=== PATIENT | female | born 1975 | race Caucasian/White ===

== ENCOUNTER → 2022-03-31 09:02 | Outpatient (CLI) | payer OTHER, SELFPAY ==
--- NOTE | ~2022-03-31 | CT_ITS ---
EXAMINATION: CT abdomen pelvis w con DATE: 03/31/2022 09:42 INDICATION: Abdominal wall mass. TECHNIQUE: Computed tomography (CT) of the abdomen and pelvis was performed with 100 mL Omnipaque 350 intravenous contrast. Automated exposure control and iterative reconstruction technique were employe d. The dose-length product was 850.91 mGy-cm. COMPARISON: None. FINDINGS: The visualized portions of the lung bases demonstrate minimal atelectasis. No pleural effus ion. The heart size is normal. No pericardial effusion. The liver, gallbladder, spleen, pancreas, adr enal glands, and left kidney are normal. There is a 5 mm mass in right kidney that is too small to ch aracterize, but likely a cyst. There are no dilated loops of bowel. The appendix is normal. There are no pathologically enlarged lymph nodes. There is no free intraperitoneal fluid. There is a 9.8 x 4.4 x 9.7 cm subcutaneous lipoma in right lateral abdomen. There is severe lower lumbar spondylosis. IMPRESSION: 1. 9.8 cm subcutaneous lipoma in right lateral abdomen. Reviewed, dictated and finalized at location A. UCTION ENGINE REPAIRER
== END ==
PROVIDERS: PCP Physician Assistant Medical; Visit Provider Physician Assistant Medical
DX: R22.2 Localized swelling, mass and lump, trunk (principal)
CPT/HCPCS: 74177; Q9967

== ENCOUNTER 2022-06-05 01:35 | Day surgery (SDC) | payer OTHER, SELFPAY ==
[2022-05-24 16:15] VITALS: BMI 34.2
--- NOTE | 2022-05-24 16:36 | PC.NURSE ---
Report to the Outpatient Waiting Room, entrance under the green pavilion located off [facility], at time 1000 on date _06/05/22. Planned Procedure Time: _1200. Time changes happen often and if your time is changed the preop area will call you the afternoon before. - You and your visitor will be asked to self-screen and do not enter if you have any COVID symptoms. - Only one visitor is requested with a max of two and NO children visitors are allowed at this time. - The patient visitor may be requested to leave or wait in car when not with patient due to distancing restrictions. - A mask is optional within the hospital at this time. Patients may have clear liquids (water, carbonated beverages, clear teas, apple juice) until 3 hours prior to surgery with a maximum of 20 ounces. - No food from midnight until time of surgery - Infants may have breast milk until 4 hours before surgery, infant formula 6 hours prior to surgery. - Children will be allowed to drink immediately following surgery. If applicable, please bring a bottle or sippy cup to assist with drinking. Juice, water, soda, and popsicles are readily available. For infants on formula, please bring formula the day of surgery. Pacifiers are allowed. Take the following medications with a SIP of water the morning of surgery: _n/a DO NOT STOP ANY OF YOUR OTHER PRESCRIPTION MEDICATIONS PRIOR TO SURGERY ?EXCEPT THE FOLLOWING Medications to discontinue per physician ___n/a Date to take last dose Please no make-up, nail vincentian, hairspray, perfume, deodorant, or body powder the day of surgery. No jewelry (including any body piercings) or valuables the day of surgery, leave them at home. Please take a shower or bath the night before, or the morning of, surgery with an antibacterial soap. Wear comfortable, loose fitting clothing. Children are encouraged to wear pajamas. - Jewelry must be removed prior to entering the operating room. Rings and piercings that are not removed may be cut off. - The hospital will not accept responsibility for valuables. - Please leave all valuables, including medications, at home the day of surgery. If you are going home after surgery, a licensed assembly line driver must drive you home. - NO public transportation without another adult if you receive anesthesia. - We recommend that an adult stay with you for 24 hours following discharge. - We also recommend that you do not drive, make important decision, drink alcoholic beverages, or take any drugs that were not prescribed by your health care provider for at least 24 hours after your discharge time. For Pediatric surgeries, we recommend two adults accompany the child home. Follow any additional instructions given to you from your surgeon. If you or anyone in your household have experienced Covid symptoms in the past week, please notify your surgeon or the nurse liaison at the phone number below for possible testing. Telephone instructions given to Shay Garibay and asked if any additional questions and then verbalized understanding. Patient advised to call surgeon office or pre surgery nurse liaison [phone] if any additional questions.
[2022-06-05] VITALS (7 sets, daily range): BP systolic 91–126; BP diastolic 49–82; PULSE 76–100; RESP 14–24; TEMP 37.1–37.4; O2SAT 98–100
[2022-06-05] MEDS: LACTATED RINGERS 1,000 ML 30 ML IV CONT ×2 (10:58→13:00)
--- NOTE | 2022-06-05 11:07 | P.PNAN_ITS ---
Anes - Initial Pre Proc Eval Procedure: Operation Date: 06/05/22 12:00 Proposed Procedures p Excision of Right Flank Subcutaneous Mass - Octavio Daley MD Date/Time: 06/05/22 11:07 Surgeon: Octavio Daley MD Pre Op Diagnosis: Rt Flank Subcutaneous Mass Patient Data Age: 46 Gender: F Height: 1.5 m Weight: 78 kg Last Vital Signs Temp 37.1 C 06/05/22 10:51 Pulse 95 06/05/22 10:51 Resp 14 06/05/22 10:51 BP 126/82 06/05/22 10:51 Pulse Ox 100 06/05/22 10:51 O2 Del Method Room Air 06/05/22 10:51 Allergies Allergy/AdvReac Type Severity Reaction Status Date / Time shellfish derived Allergy Severe Swelling Verified 06/05/22 10:59 of Lip/Tongue/Throat Home Medications Medication Instructions Recorded Confirmed Type clobetasol 0.05 % topical ointment 1 applic topical BID #60 grams 04/03/22 05/24/22 Rx medroxyprogesterone 150 mg/mL 150 mg IM [id number] #1 mL 04/03/22 05/24/22 Rx intramuscular suspension (Depo-Provera) acyclovir 800 mg tablet 800 mg PO TID PRN itching 05/24/22 05/24/22 History Patient hx anesthesia problems: none Family hx anesthesia problems: none Results Review: All pre-operative results and documents have been reviewed as part of the pre- operative evaluation. [facility] Past Medical History Medical History (Updated 06/05/22 @ 11:07 by Ricky Allison MD) Obesity Surgical History Surgical History S/P Family History Family History Grandparent Cancer Social History Social History Smoking status: Never smoker Alcohol intake: never Substance use: current Substance use type: marijuana Last use: 05/17/22 Lack of Transportation: No Lack of Food: Never True Current Housing: I Have Housing Concerned About Future Housing: No Difficulty Paying Gas/Electric Bills: No Difficulty Paying for Meds: No Currently Unemployed: No Education: Associate Degree Difficulty w/ Childcare or Family Care: No Living arrangements: with family Occupation/Education: occupation Gender identity (if verbalized by the patient): Female Sexual Orientation (if Verbalized by the Patient): Straight or Heterosexual Spiritual care concerns: No Anes - Eval Final PreProcedure Day of Procedure 06/05/22 11:07 Patient weight: obese Heart: regular rate and rhythm Lungs: clear to auscultation Airway: Mallampati scale class II Neurological: alert and oriented Last oral intake: >/= 8 hours ASA classification: II Emergent: no Anesthetic plan: proceed Anesthesia type and monitoring: general LMA and standard monitoring Results Review: All pre-operative results and documents have been reviewed as part of the pre- operative evaluation. Informed Consent: The patient's anesthetic plan and its attendant risks and benefits were discussed with the patient/family/POA. Questions were solicited and answers provided to the satisfaction of the patient/family/POA.
--- NOTE | 2022-06-05 11:14 | PM.IMHP ---
H&P: HPI History of Present Illness Date/Time: 06/05/22 11:14 Chief Complaint: Right lateral abdominal wall subcutaneous mass Narrative: Ms. Garibay presents to the office today for evaluation of a abdominal wall mass.? Patient reports first noticed a palpable right-sided abdominal mass over ten years ago. Since that time, admits it has doubled in size.? Was seen by her PCP for a wellness exam where a 19cm right lateral abdominal mass.? She was sent for a CT scan which showed a 9.8 cm subcutaneous lipoma in right lateral abdomen. Admits there's tenderness with pressure.? No overlying skin changes.? Review of Systems Review of Systems: The remainder of the review of systems to include constitutional, HEENT, cardiovascular, respiratory, GI, , integumentary, musculoskeletal, endocrine, immunologic, hematologic, psychiatric, and neurologic are all negative except for which is mentioned above in the HPI. [facility] Past Medical History Medical History (Updated 06/05/22 @ 11:07 by Ricky Allison MD) Obesity Surgical History Surgical History S/P Family History Family History Grandparent Cancer Social History Social History Smoking status: Never smoker Alcohol intake: never Substance use: current Substance use type: marijuana Last use: 05/17/22 Lack of Transportation: No Lack of Food: Never True Current Housing: I Have Housing Concerned About Future Housing: No Difficulty Paying Gas/Electric Bills: No Difficulty Paying for Meds: No Currently Unemployed: No Education: Associate Degree Difficulty w/ Childcare or Family Care: No Living arrangements: with family Occupation/Education: occupation Gender identity (if verbalized by the patient): Female Sexual Orientation (if Verbalized by the Patient): Straight or Heterosexual Spiritual care concerns: No Meds Home Medications and Allergies Home Medications Medication Instructions Recorded Confirmed Type clobetasol 0.05 % topical ointment 1 applic topical BID #60 grams 04/03/22 05/24/22 Rx medroxyprogesterone 150 mg/mL 150 mg IM [id number] #1 mL 04/03/22 05/24/22 Rx intramuscular suspension (Depo-Provera) acyclovir 800 mg tablet 800 mg PO TID PRN itching 05/24/22 05/24/22 History Allergies Allergy/AdvReac Type Severity Reaction Status Date / Time shellfish derived Allergy Severe Swelling Verified 06/05/22 10:59 of Lip/Tongue/Throat Vital Signs Vital Signs - 24 hr 06/05/22 10:51 Temperature 37.1 C Pulse Rate 95 Respiratory Rate 14 Blood Pressure 126/82 Pulse Oximetry 100 Oxygen Delivery Room Air Exam Const: General: comfortable and no acute distress Eyes: Sclera: sclerae normal Pupils: Equal, round and reactive pupils present Neck: Neck: supple and no JVD Resp: Effort & Inspection: normal respiratory effort Auscultation: clear to auscultation bilaterally Cardio: Rate: regular rate Rhythm: regular rhythm GI: GI Palp: Yes Soft to palpation, No Firmness to palpation present (GI), No Tenderness to palpation present (GI), No Guarding due to palpation present (GI) and No Hernia present Skin: Other: Patient has a [id number] well circumscribed, nonfixed right flank SQ mass. No skin changes.? No other SQ masses or hernias on abdominal wall. Neuro: Speech: normal speech Sensory Exam: normal sensation Extrem: General: normal to inspection Psych: Mental Status: mental status grossly normal Affect: normal affect Assessment and Plan Assessment and plan (1) Subcutaneous mass of abdominal wall: Code(s): R22.2 - Localized swelling, mass and lump, trunk Status: Acute Assessment and Plan: Will proceed with excision right flank SQ mass today in OR under general anesthesia. Risks, benefits, indications, a
--- NOTE | 2022-06-05 11:20 | WPDHPUPDATE1 ---
History and Physical Update Update Date/Time: 06/05/22 11:20 History and Physical has been reviewed, including an updated exam of the patient. There are NO changes in the patient's condition. Risks, benefits, and alternatives have been discussed and questions answered. Patient agrees to proceed with procedure.
[2022-06-05] MEDS: ceFAZolin SODIUM 1 GM VIAL 2 GM IV PUSH (11:46)
[2022-06-05] MEDS: LIDO 1%/EPINEPHRINE 1:100,000 20 ML VIAL INFILTRATE (12:11)
[2022-06-05] MEDS: KETOROLAC 15 MG/ML VIAL (*BKC) IV PUSH (12:25)
--- NOTE | 2022-06-05 13:02 | W.PM.PROC2 ---
Procedure Note - Detailed Date of Procedure 06/05/22 Pre-op Diagnosis Rt Flank Subcutaneous Mass Post-op Diagnosis Same Procedure Performed Excision right flank lipoma. Surgeon Octavio Daley MD Anesthesia General Indications Patient is a 46-year-old female who presented with a slowly enlarging subcutaneous mass of the right flank region which was started to get sore. It clinically was consistent with a large lipoma. She now presents for excision of the lipoma. Findings 10 x 12 x 3cm right flank subcutaneous mass grossly consistent with multilobulated benign lipoma. Description of Procedure After informed consent was obtained patient was brought to the operating room where she is placed in supine position and then general endotracheal anesthesia was administered. She was then turned on the beanbag on the operating table and to the left lateral decubitus position. Pressure points were all well padded. The area the right flank was then prepped and draped in usual sterile fashion. A time-out was then performed correctly identifying the patient as well as the procedure to be performed. She was given Ancef for perioperative IV antibiotics. I then made a transverse incision over the center portion of the large subcutaneous mass in the right flank. Dissection was carried down through the dermis of the skin with the scalpel then I dissected down through the subcutaneous tissues with electrocautery until I reached the capsule of the lipomatous mass. Lipoma was large and multilobulated. With a combination of electrocautery blunt finger dissection I was able to break down the fibrous septations and dissect out all of the of lobulated portions of the lipoma. The lipoma extended all the way down to the underlying fascia but not into or below the fascia. Once I had the mass completely excised out it was measured and it was 14cm in length by 12cm in with by 3cm in depth. The lipoma was then sent to pathology for examination. I then irrigated out the incisions sterile saline solution hemostasis was achieved utilizing the cautery. I then used 2-0 Vicryl sutures to plicate the subcutaneous tissues in the for quadrants and underlying fascia of the muscle to close the space under these subcutaneous flaps. I then used interrupted 2 0 Vicryl sutures to further close the deeper portions of the subcutaneous tissues to bring the skin edges together. Interrupted 3-0 Vicryl sutures were then used in a deep dermal fashion. Lastly a running subcuticular 4-0 Monocryl suture was used to finally approximate the edges of the skin. The incision was then cleaned and then skin glue was applied. A pressure dressing was also applied. The patient tolerated the procedure well no complications. All sponges, needles, and instrument counts were correct at the end procedure. EBL was _20__cc. The patient was awakened and taken to recovery in stable and satisfactory condition. Implants None Estimated Blood Loss 20 Drains No Packing No Pathology Yes (Lipoma to pathology) Complications No immediate complications Condition Stable Disposition PACU [facility] Billing Surgery - Charge Forward: Surgery Billing
== END 2022-06-05 14:52 | disposition home or self-care (01) ==
PROVIDERS: PCP Physician Assistant Medical; Visit Provider Surgery
PROC: (CPT 21931; principal; 2022-06-05 12:00)
DX: D17.1 Benign lipomatous neoplasm of skin and subcutaneous tissue of trunk (principal); E66.9 Obesity, unspecified; Z68.34 Body mass index [BMI] 34.0-34.9, adult; F12.90 Cannabis use, unspecified, uncomplicated
CPT/HCPCS: 21931; 88304; J0690; J1100; J1885; J2250; J2405; J2704; J3010; J7120

== ENCOUNTER 2023-04-10 13:16 | Outpatient (CLI) | payer OTHER, SELFPAY ==
--- NOTE | ~2023-04-10 | MM_ITS ---
EXAMINATION: MM screening [facility] BI w tereso HISTORY: Screening mammogram TECHNIQUE: Craniocaudal and mediolateral oblique 3-D tomosynthesis images were obtained and synthetic 2-D images were generated. CAD analysis was submitted and interpreted. COMPARISON: None, baseline BREAST PARENCHYMAL COMPOSITION: There are scattered areas of fibroglandular density. FINDINGS: RIGHT BREAST: There is a possible mass in the middle third of the upper outer quadrant of the breast at the 10:00 location, 6 cm from the nipple. LEFT BREAST: No suspicious mass, calcification, or architectural distortion are identified to suggest malignancy. IMPRESSION: 1. Possible right breast mass. 2. Additional mammographic views and possible breast ultrasound are recommended to evaluate the possi ble right breast mass and establish a baseline given that this is the first mammographic examination. BI-RADS Category 0: Incomplete: Needs additional imaging evaluation. Reviewed, dictated and finalized at location A. CORPORATE DEVELOPMENT IMPRESSION: 1. Possible right breast mass. 2. Additional mammographic views and possible breast ultrasound are recommended to evaluate the possible right breast mass and establish a baseline given that this is the first mammographic examination. BI-RADS Category 0: Incomplete: Needs additional imaging evaluation.
== END 2023-04-10 13:17 | disposition home or self-care (01) ==
LOC: CHSIMG 13:19
PROVIDERS: PCP Physician Assistant Medical; Visit Provider Physician Assistant Medical
DX: Z12.31 Encounter for screening mammogram for malignant neoplasm of breast (principal); R92.8 Other abnormal and inconclusive findings on diagnostic imaging of breast
CPT/HCPCS: 77063; 77067

== ENCOUNTER 2023-04-16 09:00 | Outpatient (CLI) | payer OTHER, SELFPAY ==
--- NOTE | ~2023-04-16 | MMUS_ITS ---
EXAMINATION: MM diagnostic jessica RT w tereso, US breast RT limited HISTORY: Follow-up right breast asymmetries in the lateral aspect of the right breast TECHNIQUE: Additional 3-D tomosynthesis images of the right breast were performed and synthetic 2-D i mages were generated. CAD analysis was submitted and interpreted. High resolution Limited right breas t ultrasound was performed. COMPARISON: 04/10/2023 BREAST PARENCHYMAL COMPOSITION: The breasts are heterogeneously dense, which may obscure small masses FINDINGS: MAMMOGRAPHIC FINDINGS: There is a persistent focal asymmetry laterally in the right breast on spot CC view, not well demonst rated on MLO or mediolateral views. ULTRASOUND: Limited right breast ultrasound: At 10:00, 8 cm from the nipple, there is an irregular shaped heterog eneous hypoechoic 7 mm mass with parallel orientation, irregular margins, mixed posterior attenuation and no internal vascularity. At 9:00, 8 cm from the nipple there is a 4 mm complicated cyst. At 10:0 0, 5 cm from the nipple there is a septated 7 mm cyst. IMPRESSION: 1. Irregular shaped heterogeneous hypoechoic 7 mm right breast mass at 10:00, 8 cm from the nipple. T his may correspond to the area of mammographic concern. 2. Ultrasound-guided right breast biopsy recommended. BI-RADS category 4, suspicious findings. Reviewed, dictated and finalized at location A. RAL FARM MANAGER IMPRESSION: 1. Irregular shaped heterogeneous hypoechoic 7 mm right breast mass at 10:00, 8 cm from the nipple. This may correspond to the area of mammographic concern. 2. Ultrasound-guided right breast biopsy recommended. BI-RADS category 4, suspicious findings.
== END 2023-04-16 09:01 | disposition home or self-care (01) ==
LOC: CHSIMG 09:01
PROVIDERS: PCP Physician Assistant Medical; Visit Provider Physician Assistant Medical
DX: R92.8 Other abnormal and inconclusive findings on diagnostic imaging of breast (principal)
CPT/HCPCS: 76642; 77061; 77065; G0279

== ENCOUNTER 2023-05-01 09:58 | Outpatient (CLI) | payer OTHER, SELFPAY ==
--- NOTE | ~2023-05-01 | MMUS_ITS ---
EXAMINATION: US breast biopsy RT w image, MM post biopsy invasive RT DATE: 05/01/2023 11:47 (accession [id number]), 05/01/2023 12:57 (accession [id number]) INDICATION: Indeterminate mass in the upper outer quadrant of the right breast. Ultrasound-guided cor e biopsy is requested to evaluate for malignancy. TECHNIQUE AND FINDINGS: The risks and potential benefits of the procedure were discussed with the patient including bleeding and infection. A time out was performed. The skin of the right breast was prepared and draped in usua l sterile fashion. 1% lidocaine was used for superficial anesthesia. 1% lidocaine with epinephrine wa s used for deep anesthesia. A vacuum-assisted biopsy needle was advanced through to the outer edge of the region of interest from an inferolateral approach utilizing sonographic guidance. A total of three tissue core samples were obtained through the lesion. A tissue marker clip was then placed at the biopsy site. Hemostasis was achieved. A sterile bandage was applied. The patient tolerated procedure well and there was no evidence of immediate complication. The patient was given verbal instructions to return to the Emergency Department in the event of severe breast pa in or rapid breast enlargement. A two view right breast mammogram was obtained to document tissue mar ker clip placement. IMPRESSION: 1. Successful ultrasound-guided vacuum-assisted biopsy of right breast mass with tissue marker placem ent. Reviewed, dictated and finalized at location A. HT TEST MECHANIC IMPRESSION: 1. Successful ultrasound-guided vacuum-assisted biopsy of right breast mass wit h tissue marker placement.
== END 2023-05-01 09:59 | disposition home or self-care (01) ==
PROVIDERS: PCP Physician Assistant Medical; Visit Provider Physician Assistant Medical
DX: R92.8 Other abnormal and inconclusive findings on diagnostic imaging of breast (principal)
CPT/HCPCS: 19083; 88305; A4648